=== PATIENT | male | born 1975 | race African-American/Black ===

== ENCOUNTER 2016-04-05 14:27 | Inpatient (IN) | payer OTHER ==
[~2016-04-05] VITALS: Ht 180.3 cm; Wt 167.2 kg
[2016-04-17] MEDS ORDERED: ceFAZolin 2 GM PREMIX 50 ML IV SCH (07:00)
[2016-04-17] MEDS ORDERED: metroNIDAZOLE 500 MG INJ 100 ML IV SCH (07:00)
[2016-04-17] MEDS ORDERED: SODIUM CHLORID 0.9% 500 ML IV SCH (07:00)
[2016-04-17] MEDS ORDERED: LACTATED RINGER'S 1000 ML IV SCH (07:00)
[2016-04-17] MEDS ORDERED: INSULIN HUMAN REGULAR 1,000 UNITS/10 ML VIAL SQ PRN (07:00)
[2016-04-17] MEDS ORDERED: ONDANSETRON HCL 4 MG/2 ML VIAL IV PUSH SCH (07:00)
[2016-04-17] MEDS ORDERED: APREPITANT 40 MG CAP PO SCH (07:00)
[2016-04-17] MEDS ORDERED: METOPROLOL TARTRATE 25 MG TAB PO PRN (07:00)
[2016-04-17] MEDS: SCOPOLAMINE 1.5 MG PATCH T-DERMAL SCH ×2 (07:05→07:14)
[2016-04-17 07:16] VITALS: BP 157/76; PULSE 71; RESP 16; TEMP 98.4; O2SAT 95
[2016-04-17] MEDS: ACETAMINOPHEN 1000 MG/100 ML VIAL IV SCH ×2 (07:20→07:22)
[2016-04-17] MEDS ORDERED: MIDAZOLAM HCL 2 MG/2 ML VIAL ONE (08:51)
[2016-04-17] MEDS ORDERED: DEXAMETHASONE SOD PHOS 4 MG/ML VIAL ONE (09:05)
[2016-04-17] MEDS ORDERED: fentaNYL CITRATE 250 MCG/5 ML AMP ONE (09:06)
[2016-04-17] MEDS ORDERED: ONDANSETRON HCL 4 MG/2 ML VIAL ONE (09:06)
[2016-04-17] MEDS ORDERED: BUPIVACAINE/EPINEPHRINE 0.25% 50 ML VIAL INFIL ONE (09:22)
[2016-04-17] MEDS ORDERED: METHYLENE BLUE 10 MG/ML VIAL OTHER ONE (09:22)
[2016-04-17] MEDS ORDERED: PROPOFOL 200 MG/20 ML AMP IV ONE (11:11)
[2016-04-17] MEDS ORDERED: LACTATED RINGER'S 1000 ML INJ 1,000 ML IV ONE (11:11)
[2016-04-17] MEDS ORDERED: NEOSTIGMINE 3 MG/3 ML SYR IV ONE (11:11)
[2016-04-17] MEDS ORDERED: ACETAMINOPHEN 325MG/HYDROcodone 7.5MG/15ML UDC PO PRN ×2 (11:15)
[2016-04-17] MEDS ORDERED: diphenhydrAMINE HCL 50 MG/ML VIAL IV PRN (11:15)
[2016-04-17] MEDS ORDERED: ACETAMINOPHEN 1000 MG/100 ML VIAL IV PRN (11:15)
[2016-04-17] MEDS ORDERED: diphenhydrAMINE HCL ELIXIR 12.5 MG/5 ML CUP PO PRN (11:15)
[2016-04-17] MEDS ORDERED: ENALAPRILAT 1.25 MG/ML VIAL IV PUSH PRN (11:15)
[2016-04-17] MEDS ORDERED: NALOXONE HCL 0.4 MG/ML AMP IV PRN (11:15)
[2016-04-17] MEDS ORDERED: MORPHINE SULFATE 30 MG/30 ML PCA IV SCH (11:15)
[2016-04-17] MEDS ORDERED: SODIUM CHLORIDE 0.9% FLUSH 5 ML FLUSH IVF PRN (11:15)
[2016-04-17] MEDS ORDERED: ONDANSETRON HCL 4 MG/2 ML VIAL IV PRN ×2 (11:15)
[2016-04-17] MEDS ORDERED: Post-op Orders (for Pharmacy) MISC XX ONE (11:15)
[2016-04-17] MEDS ORDERED: *morphine SULFATE 8 MG/ML PERIprocedure ONLY ONE ×2 (11:41→12:09)
[2016-04-17] MEDS: D5-1/2 NS + KCL 20 MEQ INJ 1,000 ML IV SCH ×4 (12:20→21:16)
[2016-04-17] MEDS: METOCLOPRAMIDE HCL 10 MG/2 ML VIAL IVS SCH ×2 (13:52→17:40)
[2016-04-17] MEDS: PCA - TOTAL MG MORPHINE DELIVERED PER SHIFT SCH ×2 (14:00→21:16)
[2016-04-17] MEDS ORDERED: ENOXAPARIN SODIUM 40 MG/0.4 ML SYRINGE SQ SCH (16:00)
[2016-04-17 16:02] VITALS: O2SAT 95
[2016-04-17] MEDS: metroNIDAZOLE 500 MG INJ 100 ML IV SCH (16:52)
[2016-04-17 20:00] VITALS: BP 125/58; PULSE 81; RESP 22; TEMP 98.2; O2SAT 94
[2016-04-17] MEDS: SODIUM CHLORIDE 0.9% FLUSH 5 ML FLUSH IVF SCH (21:00)
[2016-04-18] VITALS: BP 126/73; PULSE 70; RESP 20; TEMP 97.8; O2SAT 94
[2016-04-18] MEDS: metroNIDAZOLE 500 MG INJ 100 ML IV SCH ×2 (00:57→08:01)
[2016-04-18] MEDS: METOCLOPRAMIDE HCL 10 MG/2 ML VIAL IVS SCH ×2 (00:58→05:29)
[2016-04-18] MEDS: D5-1/2 NS + KCL 20 MEQ INJ 1,000 ML IV SCH (03:40)
[2016-04-18 04:00] VITALS: BP 127/62; PULSE 75; RESP 18; TEMP 97.8; O2SAT 94
[2016-04-18] MEDS: PCA - TOTAL MG MORPHINE DELIVERED PER SHIFT SCH (05:32)
[2016-04-18] MEDS ORDERED: SUCRALFATE 1 GM/10 ML CUP PO SCH (06:00)
[2016-04-18 06:57] LABS: AUTOMATED NEUTROPHIL # 4.9 TH/MM3 (1.8-7.7); BASOPHIL % 0.2 % (0.0-2.0); EOSINOPHIL % 0.2 % (0.0-4.0); HEMATOCRIT 37.9 % (39.0-51.0); HEMO FLAGS DIFF FINAL; LYMPH % 19.3 % (9.0-44.0); LYMPHOCYTE # 1.3 TH/MM3 (1.0-4.8); MEAN CELL VOLUME 86.6 FL (80.0-100.0); MEAN CORPUSCULAR HEMOGLOBIN 28.6 PG (27.0-34.0); MONO % 8.2 % (0.0-8.0); NEUT % 72.1 % (16.0-70.0); PLATELET COUNT 197 TH/MM3 (150-450); RED BLOOD COUNT 4.38 MIL/MM3 (4.50-5.90); RED CELL DISTRIBUTION WIDTH 12.5 % (11.6-17.2); WHITE BLOOD COUNT 6.8 TH/MM3 (4.0-11.0)
[2016-04-18 07:32] LABS: MAGNESIUM 2.2 MG/DL (1.5-2.5); POTASSIUM 3.6 MEQ/L (3.5-5.1)
[2016-04-18 08:00] VITALS: BP 140/66; PULSE 70; RESP 19; TEMP 98; O2SAT 100
[2016-04-18] MEDS: SODIUM CHLORIDE 0.9% FLUSH 5 ML FLUSH IVF SCH (08:01)
[2016-04-18] MEDS ORDERED: PANTOPRAZOLE SODIUM 40 MG VIAL IVP SCH (09:00)
[2016-04-18] MEDS ORDERED: PANTOPRAZOLE SOD 40 MG DELAYED RELEASE TAB PO SCH (09:00)
[2016-04-18] MEDS ORDERED: METOCLOPRAMIDE HCL 10 MG/2 ML VIAL IVS PRN (11:15)
--- NOTE | 2016-04-18 11:21 | HHI.PR ---
Subjective Subjective Notes pt comfortable no cp no sob Objective Vitals/I&O Vital Signs Date Time Temp Pulse Resp B/P Pulse Ox O2 Delivery O2 Flow Rate FiO2 04/18/16 08:00 98.0 70 19 140/66 100 04/17/16 16:02 21 04/17/16 15:00 Nasal Cannula 2 Labs Laboratory Tests Test 04/18/16 06:09 White Blood Count 6.8 Red Blood Count 4.38 Hemoglobin 12.5 Hematocrit 37.9 Mean Corpuscular Volume 86.6 Mean Corpuscular Hemoglobin 28.6 Mean Corpuscular Hemoglobin 33.0 Concent Red Cell Distribution Width 12.5 Platelet Count 197 Mean Platelet Volume 9.9 Neutrophils (%) (Auto) 72.1 Lymphocytes (%) (Auto) 19.3 Monocytes (%) (Auto) 8.2 Eosinophils (%) (Auto) 0.2 Basophils (%) (Auto) 0.2 Neutrophils # (Auto) 4.9 Lymphocytes # (Auto) 1.3 Monocytes # (Auto) 0.6 Eosinophils # (Auto) 0.0 Basophils # (Auto) 0.0 CBC Comment DIFF FINAL Differential Comment Sodium Level 138 Potassium Level 3.6 Chloride Level 103 Carbon Dioxide Level 27.0 Anion Gap 8 Blood Urea Nitrogen 13 Creatinine 1.12 Estimat Glomerular Filtration 88 Rate Random Glucose 110 Calcium Level 8.4 Magnesium Level 2.2 Abdomen: Post-op tenderness Extremities: Perfused Wound Wound : Wound Location: Abdomen Appearance: Clean & Dry A/P Assessment and Plan POD # 1 S/P lap Sleeve Doing well D/C home later today Konrad Jones MD Apr 18, 2016 11:21
--- NOTE | 2016-05-07 20:29 | MP ---
cc: MASON JONES DATE OF SURGERY: 04/17/2016. PREOPERATIVE DIAGNOSIS: 1. Super obesity with BMI of 51. 2. Lipoma, abdominal wall. POSTOPERATIVE DIAGNOSIS: 1. Super obesity with BMI of 51. 2. Lipoma, abdominal wall. OPERATIVE PROCEDURE PERFORMED: 1. Laparoscopic vertical sleeve gastrectomy over a 36-[place] ViSiGi bougie. 2. Excision of lipoma, abdominal wall. SURGEON: Mason Jones MD. ANESTHESIA: General endotracheal anesthesia ESTIMATED BLOOD LOSS: Scant. FINDINGS: 1. Fatty liver. 2. A 10.5 x 6 cm lipoma of abdominal wall. SPECIMEN: Lipoma. COMPLICATIONS: None. DESCRIPTION OF THE PROCEDURE IN DETAIL: The patient was brought to the operating room, placed on operating table in a supine position. Bilateral sequential inflation device placed on the lower extremities. General anesthesia instituted. The abdomen was prepped and draped sterilely. A point 15 cm distal to the xiphoid in the midline anesthetized with 0.25% Marcaine with epinephrine. A skin incision was made. A 5 mL OptiView port placed under direct vision and pneumoperitoneum created. Under direct vision, two 5 mm left lower quadrant, a 15 mm right upper quadrant and a 5 mm right upper quadrant ports were placed. Prior to placement of all ports, the skin and peritoneum anesthetized with 0.25% Marcaine with epinephrine. The patient was placed in reverse Trendelenburg position left side up. The Jacqueline-flex retractor was placed. The left lobe of the liver was retracted. The vasculature along the greater curve of the stomach was taken down using the harmonic scalpel starting at a distance 5 cm proximal to the pylorus and carried towards the angle of His. The posterior ligamentous attachments sharply . There was a hiatal hernia identified. The left and right crura of the diaphragm was dissected. The GE junction was mobilized into the abdominal cavity. The hernia sac was excised. The crura of the diaphragm was approximated with 0-silk suture in a [id number] manner. The 36-[place] ViSiGi bougie was placed at the beginning of the case. It was placed on suction. Division of the stomach started 5 cm proximal to the pylorus and this was carried towards the angle of His to completely excise approximately 80% of the stomach. This was performed using an [employer] flex stapler. The first firing was with a black load, followed by a green load and two gold loads. All staple loads were reinforced with Seamguard. A distance of 2 cm was left from the angle incisura and the staple line. A distance of 1 cm left from the GE junction and the staple line. The bougie was then removed. Methylene blue was then instilled through the OG tube after occluding the pylorus. There was no evidence of extravasation. The gastrocolic ligament was then sutured to the posterior leaflet of the SeamGuard using a 2-0 Vicryl suture in a running manner for the entire staple line. The bleeding points were controlled with Evicel. The excised stomach was removed from the peritoneal cavity in an Endopouch through the 15 mm port site. The fascia at the 15 mm port site approximated using an 0-Vicryl suture. The mass in the abdominal wall was identified and 0.25% Marcaine with epinephrine was used to anesthetize the skin and subcutaneous tissue in the region. A skin incision was made over this region and using blunt and sharp dissection, a fatty tumor was excised. Pressure was used to attain hemostasis. 3-0 Vicryl was used to approximate the subcutaneous tissue and the skin edges were approximated with 4-0 Monocryl. The abdominal wall was cleaned and a sterile dressing was placed. The patient was awakened and taken to the recovery room. MD SCOT Walter/KILEY /11:22 AM /8:20 PM JESSICA
== END 2016-04-18 13:03 | disposition home or self-care (01) | DRG 621 ==
LOC: HSDI 04-17 05:19 → N07A 04-17 15:30
PROVIDERS: ADMIT Surgery; ATTEND Surgery
PROC: 0DB64Z3 Excision of Stomach, Percutaneous Endoscopic Approach, Vertical (ICD-10-PCS; principal; 2016-04-17 09:22)
PROC: 0WBF4ZX Excision of Abdominal Wall, Percutaneous Endoscopic Approach, Diagnostic (ICD-10-PCS; 2016-04-17 09:22)
DX: E66.01 Morbid (severe) obesity due to excess calories (principal); D17.5 Benign lipomatous neoplasm of intra-abdominal organs; Z68.42 Body mass index [BMI] 45.0-49.9, adult; E78.5 Hyperlipidemia, unspecified; M25.559 Pain in unspecified hip
CPT/HCPCS: 80048; 83735; 85025; 88304; 94150; C9113; J0131; J0690; J1100; J1650; J2250; J2270; J2405; J2710; J2765; J3010; J3480; J7120; J8501